=== PATIENT | female | born 1940 | race Caucasian/White ===

== ENCOUNTER 2019-07-21 12:25 | Observation (INO) | payer MEDICARE ==
[2019-07-21] MEDS ORDERED: Morphine 4 MG/ML VIAL ONE (12:52)
[2019-07-21] MEDS ORDERED: Aspirin Chewable 81 MG TAB ONE (13:39)
[2019-07-21] MEDS ORDERED: Ondansetron ODT 4 MG TAB SL PRN (15:05)
[2019-07-21] MEDS ORDERED: Acetaminophen 325 MG TAB PO PRN (15:05)
[2019-07-21] MEDS ORDERED: Ondansetron PF 4 MG/2 ML Vial IVP PRN (15:05)
[2019-07-21 16:04] VITALS: BMI 20.5
[2019-07-21] MEDS ORDERED: Labetalol HCl 100 MG/20 ML VIAL SLOW IVP PRN (18:19)
[2019-07-21] MEDS ORDERED: Calcium Carbonate 500 MG ChewTAB PO PRN (18:19)
[2019-07-21] MEDS ORDERED: Acetaminophen 500 MG TAB PO PRN (18:19)
[2019-07-21] MEDS ORDERED: Ondansetron ODT 4 MG TAB PO PRN (18:19)
[2019-07-21] MEDS ORDERED: hydrALAZINE 20 MG/ML VIAL SLOW IVP PRN (18:19)
[2019-07-21] MEDS ORDERED: Lorazepam 2 MG/ML VIAL SLOW IVP PRN (18:48)
[2019-07-21 19:36] LABS: Bilirubin Negative (Negative); Blood, Urine Negative (Negative); Clarity Clear (Clear); Glucose, Urine (Dipstick) Normal (Negative); Leukocyte Negative Leu/uL (Negative); Nitrite Negative (Negative); Protein, Urine (Dipstick) Negative (Neg-Trace); Urobilinogen Normal mg/dL (Less than 2)
[2019-07-21] MEDS: Ondansetron PF 4 MG/2 ML Vial IVP PRN (19:53)
--- NOTE | 2019-07-21 21:08 | HP ---
PRIMARY CARE PROVIDER: Dr. Golden at [facility] in [place], [place]. CHIEF COMPLAINT: Question of seizure. HISTORY OF PRESENT ILLNESS: This is a 79-year-old female, who presented to her primary care provider's office Dr. Golden in [place], [place], for evaluation of multiple complaints including somatic issues, emotional lability, recent falls, deconditioning, and persistent headaches. The patient states she has been dealing with headaches and general weakness with some falls in the last 2 to 3 months. The patient was apparently sitting on the exam table in her primary care provider's office when she suddenly fell back onto the table with jerking and contractions of her arms, becoming stiff, yet awake according to the daughter, who was present in the room. The patient did not exhibit tongue biting or urinary or bowel incontinence. The patient states she was awake, but was unable to control her movements or coordinate her arms. The patient denied any trauma or head injury and no reported fever or exposure history. The patient denies any new medication exposure or recent discontinuation of any chronic medications. The patient denied any recent immunizations other than influenza vaccine approximately 4 to 6 weeks prior to this evaluation. The patient denies any history of prior seizure activity, but has noted episodes of feeling weak or experiencing multiple muscle pains including her back and lower extremities. The patient denied taking any new medications or anything to alleviate her symptoms. The patient does admit to history of fibromyalgia and remote history of rheumatic fever as a child. The daughter reports the episode lasted up to a minute to 2 minutes at which point, EMS personnel were called and patient was transported to the [facility] at [facility]. The patient underwent CT imaging of the brain in the emergency room showing no acute process. Initial NIH scoring was zero according to ER reports. Metabolic screening was also performed showing no acute process. The patient received aspirin 324mg and was transferred to [facility] Department for further evaluation. PAST MEDICAL HISTORY: 1. Fibromyalgia. 2. Anxiety disorder. 3. Chronic headaches. 4. Macular degeneration. 5. Hyperlipidemia. 6. Osteoarthritis. 7. Remote history of rheumatic fever as a child. PAST SURGICAL HISTORY: 1. Status post appendectomy. 2. Status post hysterectomy. 3. Status post tonsillectomy. CURRENT MEDICATIONS: 1. Cymbalta 30 mg p.o. daily. 2. Claritin 10 mg p.o. daily. 3. Meloxicam 15 mg p.o. daily. 4. Singulair 10 mg p.o. at bedtime. 5. Omeprazole 10 mg p.o. daily. 6. Simvastatin 20 mg p.o. at bedtime. ALLERGIES: TO CODEINE. FAMILY HISTORY: Breast cancer, melanoma, and CVA in her mother. Father with history of coronary artery disease and myocardial infarction. SOCIAL HISTORY: The patient resides in the [facility]. Accompanied by her son and daughter in the hospital. No current alcohol, tobacco, or illicit drug use. Ambulatory at home with history of falls. Denies driving. Lives with her daughter. REVIEW OF SYSTEMS: CONSTITUTIONAL: Negative for weight loss or gain, ability to conduct usual activities. SKIN: Negative for rash, itching. EYES: Negative for double vision, pain. ENT/MOUTH: Negative for nose bleeding, neck stiffness, pain, tenderness. CARDIOVASCULAR: Negative for palpitations, dyspnea on exertion, orthopnea. RESPIRATORY: Negative for shortness of breath, wheezing, cough, hemoptysis, fever or night sweats. GASTROINTESTINAL: Negative for poor appetite, abdominal pain, heartburn, nausea , vomiting, constipation, or diarrhea. GENITOURINARY: Negative for urgency, frequency, dysuria, nocturia. MUSCULOSKELETAL: Negative for pain, swelling. NEUROLOGIC/PSYCHIATRIC: Negative for anxiety, depression. ALLERGY/IMMUNOLOGIC: Negative for skin rash, bleeding tendency. Otherwise negative except as stated per HPI. PHYSICAL EXAMINATION: VITAL SIGNS: Blood pressure 191/100, pulse 67, respiratory rate 16, temperature 97.9 degrees Fahrenheit, O2 saturation 99% on room air. GENERAL APPEARANCE: This is a 79-year-old female, alert and oriented x3, pleasant, responsive, with flat affect, in no acute distress. HEENT: Pupils are equal, round, reactive to light and accommodation. Extraocular muscles are intact. No scleral icterus. No conjunctival injection. Nares patent. OP is clear. Teeth in fair repair. Scalp is atraumatic. NECK: Supple. No cervical adenopathy. No thyromegaly. No carotid bruits. No JVD appreciated. Cervical spine with full active and passive range of motion. No meningeal signs noted. CHEST: Lungs are clear to auscultation bilaterally. CARDIOVASCULAR: S1, S2 without noted murmur, rub, or gallop. ABDOMEN: Rounded, soft, nontender, and nondistended. Bowel sounds are positive in all 4 quadrants. There is no hepatosplenomegaly. No abdominal bruits. No rebound or guarding appreciated. EXTREMITIES: Warm and dry with fair turgor. No clubbing, cyanosis, or asymmetric edema appreciated. Pulses are palpable distally at the dorsalis pedis, posterior tibial, and popliteal arteries bilaterally. Capillary refill less than 2 seconds. NEUROLOGIC: Cranial nerves 2 through 12 are grossly intact. No focal or lateralizing signs appreciated. Flat affect noted. Right-hand dominant. Not observed ambulatory during this exam. Blaine coma Scale 15. PERTINENT LAB AND X-RAY FINDINGS: Basic metabolic profile within normal limits. LFTs within normal limits. Troponin I negative x1. CBC showed a white blood cell count of 6.0, hemoglobin 12.3, hematocrit 37.3, platelet count 335 with normal differential. Portable chest x-ray dated 07/21/2019, showed no acute cardiopulmonary process. CT of the brain without contrast dated 07/21/2019, showed no acute intracranial process. Chronic ischemic white matter changes noted. EKG dated 07/21/2019 by my interpretation shows sinus bradycardia with heart rates in the 50s. Normal R-wave progression noted in the precordial leads. Normal axis. No acute ST-T wave changes appreciated. ASSESSMENT AND PLAN: 1. Transient ischemic attack. Question of transient ischemic attack on presentation. We will proceed with transient ischemic attack, rule out including MRI imaging of the brain. Check fasting lipid profile in the a.m. Check carotid Doppler study and 2D transthoracic echocardiogram. Check orthostatic vital signs and magnesium and TSH level. PT/OT evaluation for functional assessment. 2. Seizure like activity. We will continue to monitor on the Stroke Unit. Consider Neurology consultation if recurrence. 3. Hypertension. Appears untreated currently. We will monitor serial blood pressure trend. P.r.n. hydralazine and labetalol. 4. Recurrent falls. PT/OT evaluation for functional assessment. General fall risk precautions. 5. Anxiety/depression. Resume Cymbalta 30 mg p.o. daily. 6. Prophylaxis. SCDs while in bed. Pepcid 20 mg p.o. b.i.d. 7. Code status is full. Surrogate medical decision maker is patient's daughter. Job ID: [id number] [facility]
[2019-07-21] MEDS: Montelukast Sodium 10 mg Tablet PO SCH (21:19)
[2019-07-21] MEDS: DULoxetine 30 MG CAP PO SCH (21:19)
[2019-07-21] MEDS: Famotidine 20 MG TAB PO SCH ×2 (21:20→21:21)
[2019-07-21] MEDS: Atorvastatin Calcium 10 MG TAB PO SCH (21:20)
[2019-07-21] MEDS ORDERED: Ketorolac Tromethamine 30 MG/ML VIAL IVP SCH (22:15)
--- NOTE | 2019-07-21 22:32 | ULT ---
BILATERAL CAROTID DUPLEX ULTRASOUND: HISTORY: TIA. Slurred speech and weakness more on the right side. Headache. TECHNIQUE: Grayscale, color-flow and spectral Doppler ultrasound imaging of the extracranial carotid artery syst ems was performed bilaterally. FINDINGS: There is mild atherosclerotic plaque seen in the region of the carotid bulbs bilaterally. There is no hemodynamically significant stenosis in the bilateral internal carotid arteries according to the peak systolic velocities and the ICA/CCA ratios. The peak systolic velocity in the right ICA measures 112.376% cm/s. The peak systolic velocity in the left ICA measures 113.776% cm/s. The right ICA/CCA ratio is 1.12, and the left ICA/CCA ratio is 0.85. Vertebral arteries: Antegrade flow is demonstrated in the vertebral arteries bilaterally. IMPRESSION: No hemodynamically significant stenosis in the bilateral internal carotid arteries.
[2019-07-21] MEDS ORDERED: Promethazine HCl 25 MG/ML VIAL SLOW IVP SCH (23:00)
[2019-07-22] MEDS: Ondansetron PF 4 MG/2 ML Vial IVP PRN (02:34)
[2019-07-22] MEDS ORDERED: Ondansetron PF 4 MG/2 ML Vial IVP PRN (03:18)
[2019-07-22] MEDS ORDERED: Promethazine HCl 25 MG in Sodium Chloride 0.9% 50 ML IVPB SCH (03:30)
[2019-07-22] MEDS: Sodium Chloride 0.9% 1,000 ML IV SCH ×3 (03:51→16:12)
[2019-07-22 05:26] LABS: Anion Gap 11 mmol/L (10-20); BUN (Urea Nitrogen) 15 mg/dL (9.8-20.1); CK (CPK) 21 U/L (29-168); Calc. Creatinine Clearance 55 mL/min (70-130); Calcium 9.2 mg/dL (7.8-10.44); Carbon Dioxide 29 mmol/L (23-31); Cardiac Risk 2.2 (Less than 4.5); Chloride 104 mmol/L (98-107); Cholesterol 178 mg/dl (< 200 Desired); Estimated GFR-MDRD 67; Glucose 111 mg/dL (83-110); HDL Cholesterol 81 mg/dL (>60 Neg Risk); LDL Cholesterol, Calculated 85 mg/dL; Magnesium 2.2 mg/dL (1.6-2.6); Potassium 3.9 mmol/L (3.5-5.1); Sodium 140 mmol/L (136-145); Triglycerides 61 mg/dL (Less than 150)
[2019-07-22 05:31] LABS: Band 2 % (5-11); Hemoglobin 12.4 g/dL (12.0-16.0); Lymphocytes 9 % (21-51); MDiff Complete? YES; Mean Corpuscular HGB CONC 33.5 g/dL (32.0-36.0); Mean Corpuscular Hemoglobin 30.3 pg (27.0-31.0); Mean Corpuscular Volume 90.5 fL (78.0-98.0); Mean Platelet Volume 6.4 fL (7.4-10.4); Monocytes 6 % (0-10); Neutrophil 83 % (42-75); Platelet Count 340 thou/uL (130-400); RBC Distribution Width 12.6 % (11.5-14.5); Red Blood Cell (RBC) Count 4.08 mill/uL (4.20-5.40); White Blood Cell (WBC) Count 6.4 thou/uL (4.8-10.8)
--- NOTE | 2019-07-22 08:41 | MRI ---
BRAIN MRI WITH AND WITHOUT CONTRAST: HISTORY: Dizziness. Nausea. Evaluate for transient ischemic attack. COMPARISON: None. FINDINGS: Gradient echo sequence: No hemorrhage. Calvarium: Appropriate T1 marrow signal intensity. Midline brain parenchyma: Unremarkable. Cerebrum:No parenchymal mass, mass effect or midline shift. Brain volume is age-appropriate. Cortical cabrera-white white matter differentiation is preserved. T2 and FLAIR white matter hyperintensities due to chronic small vessel ischemic change. Ventricles: No evidence of hydrocephalus. Sinuses and mastoid air cells: Adequate aeration. Diffusion: Central arterial flow is maintained. Absent restricted diffusion. Postcontrast images: No pathologic enhancement of the brain parenchyma. Questionable vascular loop in the left internal auditory canal. Dedicated pre and postcontrast internal auditory canal MRI is recommended. IMPRESSION: 1. Absent restricted diffusion. No acute infarct. 2. Chronic small vessel ischemic changes white matter. 3. Questionable vascular loop in the left internal auditory canal. Better interrogation with a dedica russ MRI of the internal auditory canals with and without contrast is recommended. Transcribed Date/Time: 07/22/2019 8:47 AM
[2019-07-22] MEDS ORDERED: DULoxetine 30 MG CAP PO SCH (09:00)
[2019-07-22] MEDS: Loratadine 10 MG TAB PO SCH (09:06)
[2019-07-22] MEDS: Meloxicam 15 MG TAB PO SCH (09:06)
[2019-07-22] MEDS: Famotidine 20 MG TAB PO SCH ×2 (09:06→20:57)
--- NOTE | 2019-07-22 14:39 | PDOC.HOSPP ---
- Subjective Encounter Date: 07/22/19 Encounter Time: 14:25 Subjective: f/u for ? seizure-like activity, falls. Work up negative to date. No seizure activity reported by family or nursing. Commiskey nauseated last pm now improved. - Objective Vital Signs & Weight: Vital Signs (12 hours) Temp Pulse Pulse Pulse Pulse Pulse Resp 07/22/19 11:22 98.3 F 66 16 07/22/19 09:49 84 07/22/19 09:47 80 07/22/19 09:45 79 07/22/19 09:20 79 80 84 76 07/22/19 07:33 97.4 F L 85 16 07/22/19 04:00 98.1 F 77 14 BP BP BP BP BP BP BP 07/22/19 11:22 148/62 H 07/22/19 09:49 155/73 H 07/22/19 09:47 179/68 H 07/22/19 09:45 07/22/19 09:20 164/69 H 179/68 H 155/73 H 178/69 H 07/22/19 07:33 171/75 H 07/22/19 04:00 163/65 H BP Pulse Ox 07/22/19 11:22 100 07/22/19 09:49 07/22/19 09:47 07/22/19 09:45 164/69 H 07/22/19 09:20 07/22/19 07:33 97 07/22/19 04:00 94 L Weight Weight 134 lb 14.4 oz Result Diagrams: 07/22/19 04:44 07/22/19 04:44 Additional Labs: Laboratory Tests 07/22/19 07/22/19 04:44 04:44 Magnesium 2.2 TSH 3rd Generation 0.5974 Radiology Reviewed by me: Yes (MRI brain - no acute process, Carotid sono - neg) EKG Reviewed by me: Yes (Tele - SR) Hospitalist ROS - Medication Medications: Active Medications Generic Name Dose Route Start Last Admin Trade Name Freq PRN Reason Stop Dose Admin Atorvastatin Calcium 10 mg 07/21/19 21:00 07/21/19 21:20 Lipitor PO 10 mg HS PRESTON Administration Duloxetine HCl 30 mg 07/21/19 21:00 07/21/19 21:19 Cymbalta PO 30 mg HS PRESTON Administration Famotidine 20 mg 07/21/19 21:00 07/22/19 09:06 Pepcid PO 20 mg BID PRESTON Administration Loratadine 10 mg 07/22/19 09:00 07/22/19 09:06 Claritin PO 10 mg DAILY PRESTON Administration Meloxicam 15 mg 07/22/19 09:00 07/22/19 09:06 Mobic PO 15 mg DAILY PRESTON Administration Montelukast Sodium 10 mg 07/21/19 21:00 07/21/19 21:19 Singulair PO 10 mg HS PRESTON Administration Sodium Chloride 10 ml 07/22/19 09:00 07/22/19 10:03 Flush - Normal Saline IVF Not Given Q12HR PRESTON - Exam General Appearance: NAD, awake alert Eye: PERRL, anicteric sclera ENT: normocephalic atraumatic, no oropharyngeal lesions Neck: supple, symmetric, no JVD, no thyromegaly Heart: RRR, no murmur, no gallops, no rubs, normal peripheral pulses Respiratory: CTAB, no wheezes, no rales, no ronchi Gastrointestinal: soft, non-tender, non-distended, normal bowel sounds Extremities: no cyanosis, no clubbing, no edema Skin: normal turgor, no lesions, no rashes Neurological: cranial nerve grossly intact, no new deficit Musculoskeletal: normal tone, normal strength Psychiatric: normal affect, A&O x 3 Hosp A/P (1) TIA (transient ischemic attack) Code(s): G45.9 - TRANSIENT CEREBRAL ISCHEMIC ATTACK, UNSPECIFIED Status: Acute Plan: ? TIA but negative MRI brain imaging, continue ASA (2) Seizure Code(s): R56.9 - UNSPECIFIED CONVULSIONS Status: Acute Plan: ? seizure-like episode, check EEG, consult Neurology (3) HTN (hypertension) Code(s): I10 - ESSENTIAL (PRIMARY) HYPERTENSION Status: Chronic Qualifiers: Hypertension type: essential hypertension Qualified Code(s): I10 - Essential (primary) hypertension Plan: Resume home BP regimen, serial monitoring (4) Falls Code(s): W19.XXXA - UNSPECIFIED FALL, INITIAL ENCOUNTER Status: Acute Plan: PT evaluation for functional assessment, ? HH with PT (5) Anxiety and depression Code(s): F41.9 - ANXIETY DISORDER, UNSPECIFIED; F32.9 - MAJOR DEPRESSIVE DISORDER, SINGLE EPISODE, UNSPECIFIED Status: Chronic Plan: Resume home regimen - Plan plan discussed w/ family, PT/OT, manager social, out of bed/ambulate, DVT proph w/SCDs Stable currently Check EEG Consult Neurology OOB with PT Continue ASA 81mg daily 2D echo pending Likely home in 24h
[2019-07-22] MEDS ORDERED: Aspirin 81 mg Enteric Coated Tablet PO SCH (14:45)
[2019-07-22] MEDS ORDERED: Magnevist 469MG/ML 20 ML VIAL ONE (15:15)
[2019-07-22] MEDS: Montelukast Sodium 10 mg Tablet PO SCH (20:57)
[2019-07-22] MEDS: Atorvastatin Calcium 10 MG TAB PO SCH (20:57)
[2019-07-22] MEDS: DULoxetine 30 MG CAP PO SCH (20:57)
--- NOTE | 2019-07-23 01:20 | CON ---
DATE OF CONSULTATION: 07/22/2019 CONSULTING PHYSICIAN: Hospitalist Service. IMPRESSION: 1. Pseudoseizures. 2. Anxiety disorder. PLAN: She may be discharge at your discretion. HISTORY OF PRESENT ILLNESS: Ms. Cunningham is a 79-year-old woman with a long history of anxiety. She recently moved in with her daughter to assist in her care. She was worried that she was not managing her medicines correctly. She had been having some abdominal pain of uncertain etiology. She has a past history of syncopal like episode that was worked up and no cause was identified. She had gone to her doctor prior to this admission. She was sitting on the exam table when she fell over and started shaking. She remained conscious throughout the event. She never bit her tongue or lost control of her bladder. Doctor recognized that it is a pseudo-seizure. She was sent here for a workup. She had an MRI of the brain done, which was unremarkable or EEG was normal as well. She has an echocardiogram pending, but has no cardiac history. She has been on Cymbalta for a long history of fibromyalgia. She complains of arthritic pain in her joints also. She feels like at times her mind escapes her and she cannot think straight. She denies having hyperventilation episodes. PAST MEDICAL HISTORY: As noted above. ALLERGIES: CODEINE. SOCIAL HISTORY: No tobacco or alcohol. FAMILY HISTORY: Noncontributory. REVIEW OF SYSTEMS: Ten-system review of systems is otherwise negative. PHYSICAL EXAMINATION: VITAL SIGNS: Pulse 75, respirations 20, temperature 98, blood pressure 155/59. GENERAL: She is a well-nourished elderly lady, sitting in the bed, in no acute distress. HEENT: Pupils are equal conjunctivae clear. Oropharynx clear. NECK: Supple. EXTREMITIES: No cyanosis or edema. NEUROLOGIC: She was alert and cooperative. Her speech is fluent and clear. Cranial nerves were intact. Motor exam showed equal strength. Sensation was intact to touch. No abnormal movements were seen. LABORATORY DATA: EKG shows normal sinus rhythm. SUMMARY: This elderly lady has had a long history of anxiety and probable somatization of pain and other issues in the past. She had a pseudo-seizure in the doctor's office. I do not see a need for any further neurologic workup. She refuses to consider an antidepressant. She could be referred out for a psychologist to care for and as an outpatient. Job ID: [id number]
[2019-07-23] MEDS: Sodium Chloride 0.9% 1,000 ML IV SCH (04:49)
[2019-07-23 07:42] VITALS: TEMP 97.7
[2019-07-23] MEDS: Loratadine 10 MG TAB PO SCH (08:21)
[2019-07-23] MEDS: Famotidine 20 MG TAB PO SCH (08:21)
[2019-07-23] MEDS: Meloxicam 15 MG TAB PO SCH (08:21)
[2019-07-23] MEDS ORDERED: Aspirin 81 mg Enteric Coated Tablet PO SCH (09:00)
--- NOTE | 2019-07-23 11:20 | DIS ---
DATE OF ADMISSION: 07/21/2019 DATE OF DISCHARGE: 07/23/2019 DISCHARGE DIAGNOSES: 1. Pseudoseizures, suspected. 2. Hypertension, stable. 3. Anxiety/depression. 4. History of falls. CONSULTATIONS: Dr. Carlos Ennis with Neurology Service. PERTINENT LABORATORY AND X-RAY FINDINGS: Complete metabolic profile within normal limits. Total cholesterol 178, triglyceride 61, HDL 81, LDL 85. TSH 0.60. CBC showed a white blood cell count of 6.4, hemoglobin 12.4, hematocrit 37, platelet count 340. CT of the brain without contrast dated on 07/21/2019 showed no acute intracranial process. Carotid Doppler study dated on 07/21/2019 showed no focal stenosis. MRI of the brain dated on 07/22/2019 showed no acute intracranial process. Chronic small vessel ischemic changes noted. Question of vascular loop in the left internal auditory canal. 2D transthoracic echocardiogram dated on 07/22/2019 showed ejection fraction of 60% to 65%. Diastolic dysfunction noted. EEG dated on 07/22/2019 showed no evidence for seizure activity. HOSPITAL COURSE: The patient was observed on the Stroke Unit after initially presenting with questionable TIA/seizure activity. The patient underwent extensive evaluation with neuroimaging showing no acute intracranial process. EEG was also performed showing no focal evidence of epileptic or seizure activity. Workup was essentially unremarkable and telemetry monitoring showed no evidence of acute arrhythmia or dysrhythmia. Metabolic workup was essentially unremarkable as well. The patient was evaluated by the Neurology Service with concern for pseudoseizure diagnosis. The patient was recommended for anxiolytics, however, deferred to pursue this course of action. Overall, the patient did remain clinically stable during the hospital course with stable vital signs. I have examined the patient at the time of discharge and discussed followup instructions. The patient verbalizes understanding and agreement, ready for discharge on 07/23/2019. DISCHARGE MEDICATIONS: 1. Cymbalta 30 mg p.o. daily. 2. Claritin 10 mg p.o. daily. 3. Meloxicam 15 mg p.o. daily. 4. Singulair 10 mg p.o. at bedtime. 5. Omeprazole 10 mg p.o. daily. 6. Simvastatin 20 mg p.o. at bedtime. FOLLOWUP: The patient may follow up with her primary care provider, Dr. Golden at [facility] in [place], [place] after discharge. CONDITION ON DISCHARGE: Stable. ACTIVITY: Ad juventino. DIET: Heart healthy. CODE STATUS: Full. DISPOSITION: Home on 07/23/2019. Job ID: [id number]
[2019-07-23 12:52] VITALS: BP 151/73
--- NOTE | 2019-07-27 09:13 | EEG ---
Referring Physician: Morena ARIAS EEG # [id number] TEST TYPE: ROUTINE PORTABLE INPATIENT REPORT: AN EEG USING THE INTERNATIONAL TEN-TWENTY SYSTEM OF ELECTRODE PLACEMENT WAS PERFORMED. The waking background is a 8 hertz alpha frequency. The patient remained awake throughout the study. Photic stimulation was unremarkable. No epileptiform features were seen. IMPRESSION: THIS IS A NORMAL AWAKE EEG. Branding Machine Tender: GET Lens Engraver: [email or web address]
== END 2019-07-23 11:38 | disposition home or self-care (01) ==
LOC: ERS 12:25 → ERHOLD 13:42 → 2SE 15:14
PROVIDERS: ADMIT Family Medicine; ATTEND Family Medicine
DX: R45.86 Emotional lability (principal); R51 Headache; R53.1 Weakness; I10 Essential (primary) hypertension; M79.7 Fibromyalgia; F41.9 Anxiety disorder, unspecified; F32.9 Major depressive disorder, single episode, unspecified; E78.5 Hyperlipidemia, unspecified; M19.90 Unspecified osteoarthritis, unspecified site; R29.6 Repeated falls; K21.9 Gastro-esophageal reflux disease without esophagitis; Z79.1 Long term (current) use of non-steroidal anti-inflammatories (NSAID); Z79.899 Other long term (current) drug therapy; Z88.5 Allergy status to narcotic agent
CPT/HCPCS: 70553; 80048; 80061; 81003; 82550; 83735; 84443; 85007; 85027; 93005; 93306; 93880; 95816; 95819; 96361 ×2; 96374; 96375; 96376; 97116 ×2; 97139 ×2; 99285; G0378 ×4; 36415; A9579; J1885; J2270; J2405; J2550